=== PATIENT | male | born 1965 | race Caucasian/White ===

== ENCOUNTER 2019-04-04 12:08 | Emergency (ER) | payer OTHER, SELFPAY ==
[2019-04-04 12:15] VITALS: BP 126/72; PULSE 75; RESP 16; TEMP 36.5; O2SAT 95
--- NOTE | 2019-04-04 12:24 | DI.CT_ITS ---
SYMPTOM/DIAGNOSIS: LLQ PN, NAUSEA, LOOSE STOOL CT SCAN ABDOMEN AND PELVIS: CT scan of the abdomen and pelvis was performed following the uneventful administration of intravenous contrast material. No priors for comparison The visualized lung bases are clear. The liver is normal in size. No suspicious hepatic masses seen. The portal, superior mesenteric and splenic veins are patent. The gallbladder is negative. There is no biliary ductal dilatation. The pancreas, spleen and adrenal glands are unremarkable as are the kidneys, ureters and bladder. The reproductive organs are unremarkable. The abdominal aorta is of normal caliber. No significant abdominal or pelvic adenopathy, ascites or pneumoperitoneum is present. There is diverticulosis of the colon. There is increased attenuation seen in the pericolonic fat in the mid colon. The findings are suspicious for acute diverticulitis. There does appear to be bowel wall thickening in the mid sigmoid colon. The remainder of the bowel is unremarkable. The appendix is normal. No acute osseous abnormality is identified. 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 IMPRESSION: Findings most suggestive of acute diverticulitis of the sigmoid colon. No evidence of free air or abscess. Results were discussed with Heather Nuñez of the Emergency Department on 04/05/19
--- NOTE | 2019-04-04 12:25 | ED.GENADUL_ITS ---
Discharge Plan Disposition Patient Disposition: HOME Condition: Improving Discharge Details Chief Complaint: Abd Prob Clinical Impression: Gastroenteritis Primary Care Provider: Francisco Javier Sneed ED Provider: Mark Robertson Home Meds and New Rx's Prescriptions: Continued rosuvastatin 40 mg tablet 40 mg PO DAILY Qty: 90 RF: 3 ropinirole 1 mg tablet 1 mg PO QHS RF: 0 fluoxetine [Prozac] 20 mg capsule 40 mg PO DAILY Qty: 90 RF: 3 levothyroxine [Synthroid] 88 mcg tablet 88 mcg PO DAILY Qty: 90 RF: 3 clobetasol 60 GM gel 1 Topical PRN RF: 0 Discharge Instructions Instructions: Gastroenteritis (ED) Additional Instructions: Home to rest today. Slowly advance diet with bland foods as tolerated. Small, frequent sips of fluids to maintain hydration. Return for development of fever, increasing discomfort, bloody stools, or any other acute concern Medical Decision Making 53-year-old male presents from home with 4 days of slowly progressive left lower quadrant abdominal pain with associated loose watery stool. He is afebrile and well-appearing but tender in the upper quadrant on exam. Differential diagnosis would include diverticulitis, colitis, infectious process. IV access established, patient given antiemetic, fluids, referred for laboratory testing and CT imaging. Diagnostics reveal reassuring laboratories with a white blood cell count of 6, hematocrit 42, platelets 190. Chemistries with unremarkable electrolytes and LFTs. CT scan with mild prominence of the colon wall but felt to be due to incomplete distention. Otherwise unremarkable images without evidence of inflammatory changes. Discussed with him a trial of conservative management as an outpatient. The patient will return if he develops a fever, bloody bowel movements, high fever, or any other acute concerns Lab Data Lab results reviewed: Yes I reviewed the patient's lab results. Laboratory Results - last 24 hr 04/04/19 04/04/19 12:53 12:53 WBC 6.24 RBC 4.90 Hgb 15.1 Hct 42.6 MCV 86.9 MCH 30.8 MCHC 35.4 RDW 12.7 Plt Count 190 MPV 9.8 Immature Gran % 0.2 Neutrophils % 51.4 Lymphocytes % 32.5 Monocytes % 13.8 Eosinophils % 1.6 Basophils % 0.5 Absolute Neutrophils 3.21 Absolute Lymphocytes 2.03 Absolute Monocytes 0.86 H Absolute Eosinophils 0.10 Absolute Basophils 0.03 Sodium 141 Potassium 3.9 Chloride 106 Carbon Dioxide 27.3 Anion Gap 7.7 BUN 14 Creatinine 0.84 Estimated GFR/1.73 m2 >= 60.00 Glucose 127 H Calcium 9.1 Total Bilirubin 0.2 AST 26 ALT 49 Alkaline Phosphatase 76 Total Protein 7.2 Albumin 3.5 HPI General Mode of arrival: ambulatory . Date/Time Provider Initiated Documentation: 04/04/19 12:16 . Limitations to Documentation: no limitations . Information obtained by: patient . History of Present Illness 53 year old M presents to the emergency department with the chief complaint of Left lower quadrant abdominal pain, loose bowel, described as moderate, Quality is described as dull and constant, and is localized to the abdomen and left. Patient reports no radiation. Patient started experiencing this day(s) and it has been intermittent. No relieving factors improve symptom(s), Movement worsens symptoms . Patient notes other (Diarrhea, nausea, no vomiting, no fever). Patient did receive the following treatments prior to arrival, none Related Data Home Medications Medication Instructions Recorded Confirmed clobetasol 1 TOPICAL PRN 01/14/14 10/19/18 ropinirole 1 mg tablet 1 mg PO QHS 10/07/18 04/04/19 rosuvastatin 40 mg tablet 40 mg PO DAILY #90 tab 10/19/18 04/04/19 fluoxetine 20 mg capsule 40 mg PO DAILY #90 cap 11/19/18 04/04/19 levothyroxine 88 mcg tablet 88 mcg PO DAILY #90 tab 02/16/19 04/04/19 Previous Rx's Medication Instructions Recorded rosuvastatin 40 mg tablet 40 mg PO DAILY #90 tab 10/19/18 fluoxetine 20 mg capsule 40 mg PO DAILY #90 cap 11/19/18 levothyroxine 88 mcg tablet 88 mcg PO DAILY #90 tab 02/16/19 Allergies Allergy/AdvReac Type Severity Reaction Status Date / Time Sulfa (Sulfonamide Allergy Intermediate Skin Rash Verified 04/04/19 12:17 Antibiotics) General Stated Complaint: Abd Prob HARISH: 3 Review of Systems Review of Systems 6 systems reviewed and otherwise negative. Patient did travel this week. No known sick contacts or suspicious food [facility] Medical History Anxiety (Chronic) Anxiety disorder Depression (Chronic) History of sebaceous cyst (Acute ~05/09/14) Hyperlipidemia Hyperlipidemia (Chronic) Hypothyroidism (Chronic) Obstructive sleep apnea (Chronic) Plaque psoriasis (Chronic) Psoriasis Restless legs syndrome (Chronic) Vitamin D deficiency (Chronic) Surgical History History of spinal fusion (Acute) Spinal Fusion Family History Mother Hyperlipidemia Myocardial infarction Coronary artery disease Father Essential hypertension Multiple sclerosis Hyperlipidemia Diabetes Skin cancer Sister Substance abuse Sister Cardiac pacemaker Brother Alcohol abuse Brother Alcohol abuse Paternal Grandfather Alcohol abuse Maternal Grandfather Alcohol abuse Social History Smoking/Tobacco Use Status: Never Alcohol Intake: current Alcohol Intake frequency: 3 or more drinks per day Drug use: Never Substance use type: does not use Adopted: No Household members: spouse and family Housing: house Number of Children: 0 current occupation: Human Resources, [employer] What type of physical activity do you participate in: regular exercise Duration: 45-60 minutes/day Frequency: 3-4 times per week Seatbelt use: always Drive intox or ride w/intox marine engine driver: No Working smoke detector in home: Yes Fire extinguisher in home: Yes Carbon monox detector in home: Yes Do you feel safe in your relationship?: Yes Exam Narrative Exam Narrative: GEN: awake, alert, oriented 3. Pleasant, well groomed, interactive. HEAD: Normocephalic, atraumatic ENT: Mucous membranes moist, oropharynx unremarkable, External ear exam unrem arkable EYES: PERRL, EOMI NECK: Full ROM, no MILTON, no menigismus CHEST/RESP: Nontender, clear to auscultation bilateral, no wheeze/rhonchi/rales CARDIOVASCULAR: RRR, no murmur, rub maude. 2+ Rad pulse bilateral ABDOMEN: Soft, tender left lower quadrant to palpation, no mass. +Bowel sounds EXT: Full ROM, no edema, no rash Neuro: Grossly normal neurologic exam, conversant, interactive. Psych: Speech fluent, thoughts congruent, affect normal Course Vital Signs Temperature 36.5 C 04/04/19 12:15 Pulse 75 04/04/19 12:15 Respiratory Rate 16 04/04/19 12:15 Blood Pressure 126/72 04/04/19 12:15 Pulse Oximetry 95 04/04/19 12:15 Temperature 36.5 C 04/04/19 12:15 Temperature Source Skin 04/04/19 12:15 Pulse 75 04/04/19 12:15 Respiratory Rate 16 04/04/19 12:15 Respiratory Effort Non-Labored 04/04/19 12:15 Blood Pressure 126/72 04/04/19 12:15 Blood Pressure Position Sitting 04/04/19 12:15 Pulse Oximetry 95 04/04/19 12:15 Oxygen Delivery Method Room Air 04/04/19 12:15 Oxygen Flow Rate 0 04/04/19 12:15 Pain Level 4 04/04/19 12:15
[2019-04-04] MEDS: Normal Saline 1,000 ML 125 ML IV (12:55)
[2019-04-04] MEDS: Ondansetron 4 MG/2 ML VIAL IVP (12:55)
[2019-04-04 12:58] LABS: Abs Immature Grans 0.01 k/cumm (0.0-0.09); Absolute Basophil Count 0.03 k/cumm (0.0-0.2); Absolute Lymphocyte Count 2.03 k/cumm (1.2-3.4); Absolute Monocyte Count 0.86 k/cumm (0.11-0.7); Absolute Neutrophil Count 3.21 k/cumm (1.2-6.7); Basophils % 0.5; Eosinophils % 1.6; HCT 42.6 % (40.0-50.0); HGB 15.1 g/dL (13.5-17.5); Immature Grans % 0.2; Lymphocytes % 32.5; Mean Corp. HGB Concentration 35.4 g/dL (32.0-36.0); Mean Corpuscular Hemoglobin 30.8 pg (27.0-33.0); Mean Corpuscular Volume 86.9 fL (80-95); Mean Platelet Volume 9.8 fL (8.0-11.0); Monocytes % 13.8; Neutrophils % 51.4; Platelet Count 190 x1000/uL (130-400); RBC Distribution Width 12.7 % (11.8-14.1); White Blood Cell Count 6.24 k/cumm (4.4-10.8)
[2019-04-04 13:12] LABS: ALT 49 U/L (12-78); AST 26 U/L (15-37); Albumin 3.5 g/dL (3.4-5.0); Alkaline Phosphatase 76 U/L (46-116); Anion Gap 7.7 mmol/L (3-11); BUN 14 mg/dL (7-18); Bilirubin, Total 0.2 mg/dL (0.2-1.0); CO2 27.3 mmol/L (21.0-32.0); CREATININE 0.84 mg/dL (0.70-1.30); Calcium 9.1 mg/dL (8.5-10.1); Chloride 106 mmol/L (98-107); Glucose 127 mg/dL (70-100); Potassium 3.9 mmol/L (3.5-5.1); Sodium 141 mmol/L (136-145); Total Protein 7.2 g/dL (6.4-8.2)
[2019-04-04] MEDS: Omnipaque 350 MG/ML 100 ML BTL IJ (13:50)
[2019-04-04 13:58] VITALS: BP 107/67; PULSE 67; RESP 16; TEMP 36.6; O2SAT 94
--- NOTE | 2019-04-04 14:27 | DI.VRAD_ITS ---
EXAM: CT Abdomen and Pelvis With Contrast EXAM DATE/TIME: 04/04/2019 12:26 PM CLINICAL HISTORY: 53 years old, male; Abdominal pain TECHNIQUE: Imaging protocol: Axial computed tomography images of the abdomen and pelvis with intravenous contrast. Coronal and sagittal reformatted images were created and reviewed. COMPARISON: No relevant prior studies available. FINDINGS: Diverticulosis of the sigmoid colon. Mild prominence of the colon wall felt to be due to incomplete distention. Small fat-containing bilateral inguinal hernias. Normal appearing solid organs. No intestinal obstruction. No obstructive uropathy. No free fluid. No free air. No inflammatory changes. IMPRESSION: No specific etiology identified for the patient's symptoms. Dictated and Authenticated by: Chris Ochoa MD. Ordering:ELA Flores MD
--- NOTE | 2019-04-05 09:33 | W.ED.FU ---
Received notice of positive finding of diverticulitis on CT, and patient states that he continues to manage in the outpatient setting. Prescriptions for Cipro and Flagyl called into local pharmacy.
== END 2019-04-04 15:05 | disposition home or self-care (01) ==
PROVIDERS: Emergency Provider Emergency Medicine; PCP Family Medicine
DX: K52.9 Noninfective gastroenteritis and colitis, unspecified (principal); K57.32 Diverticulitis of large intestine without perforation or abscess without bleeding
CPT/HCPCS: 36415; 80053; 96361; 96374; 99285; 74177; 85025; 99284; J2405; J3490

== ENCOUNTER 2019-05-11 07:07 | Outpatient (CLI) | payer OTHER, SELFPAY ==
[2019-05-11 08:52] LABS: Calculated LDL 143 mg/dL; Cholesterol 211 mg/dL (50-200); HDL Cholesterol 56 mg/dL (40-60); Triglyceride 60 mg/dL (30-150)
== END 2019-05-11 07:27 ==
LOC: LBN 07:18 → LBO 07:33
PROVIDERS: PCP Family Medicine; Visit Provider Family Medicine
DX: E78.5 Hyperlipidemia, unspecified (principal)
CPT/HCPCS: 36415; 80061

== ENCOUNTER 2019-11-27 08:45 | Outpatient (CLI) | payer OTHER, SELFPAY ==
[2019-11-27 10:23] LABS: ALT 85 U/L (16-63); AST 37 U/L (15-37); Albumin 3.9 g/dL (3.4-5.0); Alkaline Phosphatase 70 U/L (46-116); Anion Gap 4.9 mmol/L (3-11); BUN 15 mg/dL (7-18); Bilirubin, Total 0.7 mg/dL (0.2-1.0); CO2 32.1 mmol/L (21.0-32.0); Calcium 8.9 mg/dL (8.5-10.1); Calculated LDL 149 mg/dL (<100); Chloride 106 mmol/L (98-107); Cholesterol 236 mg/dL (<200); Glucose 97 mg/dL (74-106); HDL Cholesterol 63 mg/dL (40-60); Potassium 4.1 mmol/L (3.5-5.1); Sodium 143 mmol/L (136-145); Total Protein 6.9 g/dL (6.4-8.2); Triglyceride 120 mg/dL (<150)
== END 2019-11-27 09:05 ==
PROVIDERS: PCP Family Medicine; Visit Provider Family Medicine
DX: E78.5 Hyperlipidemia, unspecified (principal)
CPT/HCPCS: 36415; 80053; 80061

== ENCOUNTER 2020-02-06 05:50 | Emergency (ER) | payer OTHER, SELFPAY ==
[2020-02-06 05:34] VITALS: BP 118/71; PULSE 68; RESP 14; TEMP 36.6; O2SAT 96
--- NOTE | 2020-02-06 05:41 | ED.GENADUL_ITS ---
Discharge Plan Disposition Patient Disposition: HOME Condition: Stable Discharge Details Chief Complaint: Nk/Back Pain Clinical Impression: Low back pain, Muscle spasm Primary Care Provider: Francisco Javier Sneed ED Provider: Sergei Silva Home Meds and New Rx's Prescriptions: New cyclobenzaprine 10 mg tablet 10 mg PO TID PRNQty: 20 RF: 0 No Action rosuvastatin 40 mg tablet 40 mg PO DAILY Qty: 90 RF: 3 fluoxetine [Prozac] 20 mg capsule 20 mg PO DAILY Qty: 90 RF: 3 levothyroxine [Synthroid] 88 mcg tablet 88 mcg PO DAILY Qty: 90 RF: 3 clobetasol 60 GM gel 1 Topical PRN RF: 0 Discharge Instructions Instructions: Low Back Strain (ED), Muscle Spasm (ED) Additional Instructions: call Physical therapy offices for an appointment return to the emergency department for severe worsening pain, difficulty urinating or if you feel weak or feel more ill take 1000mg tylenol and 600mg ibuprofen every 6 hours as needed for pain if pain continues in a week see your primary care provider Stand Alone Forms: Physical Therapy Referral Medical Decision Making 54 yo male with hx of brenden, anxiety, hld, depression, comes in with two days of lower back pain. He states he helped a neighbor with some yard work friday and had some discomfort in his lower back, no falls or trauma. He had pain on Friday but decided to do yard work at his house and has had increased pain since without trauma. This mroning he was having so much pain he rolled out of bed and then called ems. He denies urinary retention, weakness, fevers, IVDU. HAs pain throughout the lumbar region without stepoffs or other deformities. Has no saddle anesthesia, no sensation or motor deficits of the lower extremities. His pain seems like muscle spasm vs back strain, no findings to suggest SEA or cauda equina and no trauma to suggest fracture. No infectious symptoms to suggest osteo. Will tx with valium and tylenol as he had 600mg ibuprofen aroud 330am and reassess. pt feeling better now is able to sit then stand and walk on his own though with some discomfort. Will d/c on flexeril and refer to PT and advised to f/u with pcp if pain continues in a week, return precautions given Differential Diagnosis Differential Diagnosis: spasm, strain, sciatica HPI General Mode of arrival: EMS . Date/Time Provider Initiated Documentation: 02/06/20 06:48 . Limitations to Documentation: no limitations . Information obtained by: patient . History of Present Illness 54 year old M presents to the emergency department with the chief complaint of low back pain, described as moderate, Patient started experiencing this day(s) (2) and it has been constant. No relieving factors improve symptom(s), No exacerbating factors reported . Patient did receive the following treatments prior to arrival, NSAID Related Data Home Medications Medication Instructions Recorded Confirmed clobetasol 1 TOPICAL PRN 01/14/14 11/23/19 fluoxetine 20 mg capsule 20 mg PO DAILY #90 cap 01/13/20 02/06/20 levothyroxine 88 mcg tablet 88 mcg PO DAILY #90 tab 01/13/20 02/06/20 rosuvastatin 40 mg tablet 40 mg PO DAILY #90 tab 01/13/20 02/06/20 cyclobenzaprine 10 mg PO TID PRN #20 tab 02/06/20 Previous Rx's Medication Instructions Recorded fluoxetine 20 mg capsule 20 mg PO DAILY #90 cap 01/13/20 levothyroxine 88 mcg tablet 88 mcg PO DAILY #90 tab 01/13/20 rosuvastatin 40 mg tablet 40 mg PO DAILY #90 tab 01/13/20 cyclobenzaprine 10 mg PO TID PRN #20 tab 02/06/20 Allergies Allergy/AdvReac Type Severity Reaction Status Date / Time Penicillins Allergy Intermediate rash Verified 02/06/20 05:38 Sulfa (Sulfonamide Allergy Intermediate Skin Rash Verified 02/06/20 05:38 Antibiotics) General Stated Complaint: Nk/Back Pain HARISH: 4 Review of Systems All systems reviewed & are unremarkable except as noted in HPI and below Constitutional Constitutional: Denies chills, Denies fever(s) and Denies weakness Cardiovascular Cardiovascular: Denies chest pain and Denies dyspnea Respiratory Respiratory: Denies cough and Denies dyspnea Gastrointestinal Gastrointestinal: Denies abdominal pain, Denies nausea and Denies vomiting Musculoskeletal Musculoskeletal: Denies joint swelling Integumentary/Breasts Skin/Breast: Denies rash Neurologic Neurologic: Denies weakness Psychiatric Psychiatric: Denies depression [facility] Medical History (Updated 02/06/20 @ 06:49 by Sergei Silva MD) Anxiety (Chronic) Anxiety disorder Depression (Chronic) Diverticulosis (Acute) History of sebaceous cyst (Acute ~01/14/14) Removal-[place] Hyperlipidemia Hyperlipidemia (Chronic) Hypothyroidism (Chronic) Obstructive sleep apnea (Chronic) Plaque psoriasis (Chronic) Psoriasis Restless legs syndrome (Chronic) Vitamin D deficiency (Chronic) Surgical History (Updated 11/25/19 @ 12:48 by Sofia Tse LPN) H/O colonoscopy (Chronic) 02/03/18 [facility], Dr Gruber (repeat 10 years) History of spinal fusion (Acute) Mid-Thoracic Region : Age 7 Spinal Fusion Social History Smoking/Tobacco Use Status: Never Alcohol Intake: current Alcohol Intake frequency: 3 or more drinks per day Drug use: Never Substance use type: does not use Adopted: No Household members: spouse and family Housing: house Number of Children: 0 current occupation: Human Resources, [employer] What type of physical activity do you participate in: regular exercise Duration: 45-60 minutes/day Frequency: 3-4 times per week Seatbelt use: always Drive intox or ride w/intox swing driver: No Working smoke detector in home: Yes Fire extinguisher in home: Yes Carbon monox detector in home: Yes Do you feel safe in your relationship?: Yes Exam Const General: no acute distress Orientation: alert HENMT Head: normal to inspection Ears: external ears normal General nose exam: external nose normal Mouth: moist mucous membranes Eyes General: appearance normal, both eyes and all related structures Neck Neck: normal visual inspection Resp Effort & Inspection: normal respiratory effort and able to speak in complete sentences Cardio Rate: regular rate Back/Spine/Pelvis Back: no CVA tenderness Skin General skin exam: no rashes or lesions noted Neuro General: patient alert and patient oriented x3 Extrem General: normal to inspection Psych Mental Status: mental status grossly normal Course Vital Signs Vital signs: Vital Signs Temperature 36.6 C 02/06/20 05:34 Pulse 68 02/06/20 05:34 Respiratory Rate 14 02/06/20 05:34 Blood Pressure 118/71 02/06/20 05:34 Pulse Oximetry 96 02/06/20 05:34 Temperature 36.6 C 02/06/20 05:34 Temperature Source Temporal Artery Scan 02/06/20 05:34 Pulse 68 02/06/20 05:34 Respiratory Rate 14 02/06/20 05:34 Respiratory Effort 02/06/20 05:37 Blood Pressure 118/71 02/06/20 05:34 Blood Pressure Position Supine 02/06/20 05:34 Pulse Oximetry 96 02/06/20 05:34 Oxygen Delivery Method Room Air 02/06/20 05:34 Oxygen Flow Rate 0 02/06/20 05:34
[2020-02-06] MEDS: diazePAM 10 MG/2 ML SYR IM (05:50)
[2020-02-06] MEDS: Acetaminophen 500 MG TAB 1000 MG PO (05:50)
[2020-02-06 06:58] VITALS: BP 148/78; PULSE 74; RESP 18; TEMP 36.6; O2SAT 99
[2020-02-06] MEDS: Cyclobenzaprine 10 MG TAB, 3 TABS/BTL PO (07:04)
== END 2020-02-06 07:03 | disposition home or self-care (01) ==
LOC: ER 07:23
PROVIDERS: Emergency Provider Emergency Medicine; PCP Family Medicine
DX: M54.5 Low back pain (principal); M62.830 Muscle spasm of back
CPT/HCPCS: 96372; 99284; J3360

== ENCOUNTER 2020-10-23 02:06 | Outpatient (CLI) | payer OTHER, SELFPAY ==
[2020-10-23 11:58] LABS: TSH 3.66 uIU/mL (0.36-3.74)
== END 2020-10-23 02:07 | disposition home or self-care (01) ==
LOC: LBO 02:06
PROVIDERS: PCP Family Medicine; Visit Provider Family Medicine
DX: E03.9 Hypothyroidism, unspecified (principal)
CPT/HCPCS: 36415; 84443

== ENCOUNTER 2021-12-03 03:38 | Outpatient (CLI) | payer OTHER, SELFPAY ==
[2021-12-03 14:02] LABS: TSH (W/Ref FT4) 2.21 uIU/mL (0.36-3.74)
== END 2021-12-03 03:39 | disposition home or self-care (01) ==
LOC: LBO 03:38
PROVIDERS: PCP Family Medicine; Visit Provider Family Medicine
DX: E03.9 Hypothyroidism, unspecified (principal)
CPT/HCPCS: 36415; 84443